=== PATIENT | male | born 1965 | race African-American/Black ===

== ENCOUNTER 2021-11-27 20:12 | Emergency (ER) | payer OTHER ==
[2021-11-27] MEDS ORDERED: SODIUM CHLORIDE 1,000 ML IV ONE (20:15)
[2021-11-27] MEDS ORDERED: KETOROLAC TROMETHAMINE 30 MG/1 ML VIAL IVPUSH ONE (20:15)
[2021-11-27] MEDS ORDERED: morphine CARPU-JECT 2 MG/1 ML DISP.SYRIN IVPUSH ONE (20:15)
[2021-11-27] MEDS ORDERED: morphine SULFATE 4 MG/ML VIAL ONE (20:19)
[2021-11-27] MEDS ORDERED: KETOROLAC TROMETHAMINE 30 MG/1 ML VIAL ONE (20:19)
[2021-11-27 20:33] VITALS: BP 143/96; PULSE 88; TEMP 98.2; BMI 35.4
[2021-11-27 20:59] LABS: ALBUMIN 4.4 g/dl (3.4-5.0); BILIRUBIN,TOTAL 0.9 mg/dl (0.2-1); CALCIUM 9.8 mg/dl (8.5-10); CREATININE 1.6 mg/dl (0.55-1.3); TOT PROT 8.6 g/dl (6.4-8.2)
[2021-11-27 21:48] LABS: BASO % 0.3 % (0-2.0); EOS % 0.4 % (0-4.5); HEMATOCRIT 50.1 % (35.4-49); HEMOGLOBIN 16.3 GM/dL (11.7-16.9); LYMPH % 18.2 % (8-40); MCH 27.8 pg (25.7-33.7); MCHC 32.5 g/dl (32.0-35.9); MEAN CELL VOLUME 85.4 fl (80-96); MEAN PLT VOLUME 8.3 fl (7.5-11.1); MONO % 11.5 % (3.8-10.2); NEUT % 69.6 % (42.8-82.8); PLATELET COUNT 290 10^3/uL (134-434); RBC 5.87 M/mm3 (4.00-5.60); WHITE BLOOD COUNT 13.8 K/mm3 (4.0-10.0)
[2021-11-27] MEDS ORDERED: CIPROFLOXACIN 500 MG TABLET (RESTRICTED TO ID) PO ONE (22:28)
[2021-11-27] MEDS ORDERED: CIPROFLOXACIN 250 MG TABLET (RESTRICTED TO ID) PO ONE (22:29)
== END 2021-11-27 22:35 | disposition home or self-care (01) ==
LOC: FER 20:12
PROC: 3E0333Z Introduction of Anti-inflammatory into Peripheral Vein, Percutaneous Approach (ICD-10-PCS; principal; 2021-11-27)
PROC: 3E033NZ Introduction of Analgesics, Hypnotics, Sedatives into Peripheral Vein, Percutaneous Approach (ICD-10-PCS; 2021-11-27)
PROC: 3E0337Z Introduction of Electrolytic and Water Balance Substance into Peripheral Vein, Percutaneous Approach (ICD-10-PCS; 2021-11-27)
DX: N23 Unspecified renal colic (principal)
CPT/HCPCS: 36415; 74176-TC; 80053; 81003; 81015; 85025; 87086; 99284-25

== ENCOUNTER 2023-10-20 12:15 | Observation (INO) | payer BC, OTHER ==
[2023-10-20 12:29] VITALS: BMI 34.0
[2023-10-20 13:48] LABS: HEMATOCRIT 53.8 % (35.4-49); HEMOGLOBIN 17.5 G/dL (11.7-16.9); MCH 28.2 pg (25.7-33.7); MCHC 32.5 g/dl (32.0-35.9); MEAN CELL VOLUME 86.7 fl (80-96); PLATELET COUNT 224.4 10^3/uL (134-434); RBC 6.21 10^6/uL (4.00-5.60); WHITE BLOOD COUNT 15.7 10^3/uL (4.0-10.8)
[2023-10-20 14:14] LABS: EPITHELIAL CELLS 0-5 /hpf
[2023-10-20 14:22] LABS: INR 1.1 (0.83-1.09); PROTHROMBIN TIME (PATIENT) 12.8 SEC (9.7-13.0)
[2023-10-20 14:32] LABS: ALBUMIN 4.6 g/dl (3.4-5.0); BILIRUBIN,TOTAL 0.7 mg/dl (0.2-1); CREATININE 1.5 mg/dl (0.6-1.3); POTASSIUM 4.5 mmol/L (3.5-5.1); TOT PROT 7.9 g/dl (6.4-8.2)
[2023-10-20 14:53] LABS: PLATELET ESTIMATE ADEQUATE
[2023-10-20 15:08] LABS: ACTIVATED PTT 30.4 SECONDS (25.2-36.5)
[2023-10-20] MEDS ORDERED: cefTRIAXone SODIUM 1 GM VIAL ONE (16:36)
[2023-10-20] MEDS ORDERED: ACETAMINOPHEN INJECTION 100 ML IVPB ONE (16:36)
[2023-10-20] MEDS: ACETAMINOPHEN 1000 MG/100 ML BAG IVPB ONE (16:42)
[2023-10-20] MEDS: CEFTRIAXONE 1 GM in DEXTROSE 5%-WATER - 100 ML IVPB ONE (16:43)
[2023-10-20] MEDS: SODIUM CHLORIDE 0.9% 1000 ML INFUS.BAG IV ONE (17:22)
[2023-10-20] MEDS ORDERED: ACETAMINOPHEN 1000 MG/100 ML BAG IVPB PRN (23:10)
[2023-10-21] MEDS: SODIUM CHLORIDE 1,000 ML IV SCH ×2 (07:12→17:18)
[2023-10-21] MEDS: INSULIN ASPART SLIDING SCALE (NOVOLOG) 1 VIAL SQ SCH ×2 (07:12→22:50)
[2023-10-21 09:38] LABS: CALCIUM 9.4 mg/dl (8.5-10.1); CREATININE 1.7 mg/dl (0.6-1.3); MAGNESIUM 1.8 mg/dL (1.8-2.4); PHOSPHOROUS 4.2 (2.5-4.9); POTASSIUM 4.4 mmol/L (3.5-5.1)
[2023-10-21] MEDS ORDERED: COLCHICINE 0.6 MG CAPSULE PO SCH (10:00)
[2023-10-21] MEDS: CEFTRIAXONE 1 GM in DEXTROSE 5%-WATER - 50 ML IVPB SCH (10:28)
[2023-10-21] MEDS: COLCHICINE 0.6 MG TAB PO SCH (10:29)
[2023-10-21] MEDS: LISINOPRIL 10 MG TABLET PO SCH (10:29)
[2023-10-21] MEDS: ALLOPURINOL 300 MG TABLET (FP) PO SCH (10:29)
[2023-10-21 10:36] LABS: BASO % 0.4 % (0-2.0); EOS % 0.4 % (0-4.5); HEMOGLOBIN 14.8 GM/dL (11.7-16.9); LYMPH % 23.5 % (8-40); MCH 27.7 pg (25.7-33.7); MCHC 32.1 g/dl (32.0-35.9); MEAN CELL VOLUME 86.3 fl (80-96); MEAN PLT VOLUME 8.1 fl (7.5-11.1); NEUT % 62.7 % (42.8-82.8); PLATELET COUNT 249 10^3/uL (134-434); RBC 5.33 M/mm3 (4.00-5.60); RDW 13.8 % (11.9-15.9); WHITE BLOOD COUNT 11.7 K/mm3 (4.0-10.0)
[2023-10-21] MEDS ORDERED: ACETAMINOPHEN 1000 MG/100 ML BAG IVPB PRN (16:41)
[2023-10-21] MEDS ORDERED: ROSUVASTATIN CA 20 MG TABLET PO SCH (22:00)
[2023-10-21] MEDS: ROSUVASTATIN CA 20 MG TABLET PO SCH (22:02)
[2023-10-21] MEDS ORDERED: ACETAMINOPHEN 325 MG TABLET (FP) PO PRN ×2 (23:08)
[2023-10-22 04:52] VITALS: RESP 18
[2023-10-22 09:27] VITALS: BP 130/89; PULSE 65; TEMP 98
[2023-10-22 09:57] LABS: INR 1.07 (0.83-1.09); PROTHROMBIN TIME (PATIENT) 12.4 SEC (9.7-13.0)
[2023-10-22 09:58] LABS: BASO % 0.4 % (0-2.0); EOS % 1.2 % (0-4.5); HEMATOCRIT 46.4 % (35.4-49); HEMOGLOBIN 15.2 GM/dL (11.7-16.9); LYMPH % 32.3 % (8-40); MCHC 32.6 g/dl (32.0-35.9); MEAN CELL VOLUME 85.7 fl (80-96); MONO % 10.3 % (3.8-10.2); NEUT % 55.8 % (42.8-82.8); PLATELET COUNT 242 10^3/uL (134-434); RBC 5.42 M/mm3 (4.00-5.60); RDW 13.8 % (11.9-15.9); WHITE BLOOD COUNT 8.1 K/mm3 (4.0-10.0)
[2023-10-22] MEDS ORDERED: LISINOPRIL 10 MG TABLET PO SCH (10:00)
[2023-10-22 10:08] LABS: POTASSIUM 4.2 mmol/L (3.5-5.1)
[2023-10-22 10:13] LABS: CALCIUM 9.7 mg/dL (8.5-10.1)
[2023-10-22 10:14] LABS: ALBUMIN 3.6 g/dl (3.4-5.0); BLOOD UREA NITROGEN 15.9 mg/dL (7-18)
[2023-10-22 10:17] LABS: CREATININE 1.2 mg/dL (0.55-1.3); PHOSPHOROUS 3.4 mg/dL (2.5-4.9)
[2023-10-22 10:18] LABS: TOT PROT 7.5 g/dl (6.4-8.2)
[2023-10-22 10:19] LABS: BILIRUBIN,TOTAL 0.5 mg/dL (0.2-1)
[2023-10-22] MEDS: COLCHICINE 0.6 MG TAB PO SCH (10:37)
[2023-10-22] MEDS: SODIUM CHLORIDE 500 ML IV STA (10:37)
[2023-10-22] MEDS: CEFTRIAXONE 1 GM in DEXTROSE 5%-WATER - 50 ML IVPB SCH (10:38)
[2023-10-22] MEDS: ALLOPURINOL 300 MG TABLET (FP) PO SCH (10:40)
== END 2023-10-22 14:26 | disposition home or self-care (01) ==
LOC: FER 12:15 → FM/S 22:29 → UNDOADMOB 22:29 → INTOOBSV 22:29 → FM/S 23:08 → J6S 10-21 16:23
PROVIDERS: ADMIT Internal Medicine; ATTEND Internal Medicine
PROC: 3E033NZ Introduction of Analgesics, Hypnotics, Sedatives into Peripheral Vein, Percutaneous Approach (ICD-10-PCS; principal; 2023-10-20)
PROC: 3E03329 Introduction of Other Anti-infective into Peripheral Vein, Percutaneous Approach (ICD-10-PCS; 2023-10-20)
PROC: 3E0337Z Introduction of Electrolytic and Water Balance Substance into Peripheral Vein, Percutaneous Approach (ICD-10-PCS; 2023-10-20)
DX: N20.1 Calculus of ureter (principal); N13.30 Unspecified hydronephrosis; E11.9 Type 2 diabetes mellitus without complications; I10 Essential (primary) hypertension; E78.5 Hyperlipidemia, unspecified; G51.0 Bell's palsy; M10.9 Gout, unspecified
CPT/HCPCS: 36415; 74176-TC; 74177-TC; 80048; 80053; 81003; 81015; 82962; 83735; 84100; 85025; 85027; 85610; 85730; 87086; 93005; 96361; 96365; 96366; 96375; 99285-25; G0378; J0131; Q9967